=== PATIENT | female | born 1980 | race African-American/Black ===

== ENCOUNTER 2016-08-26 10:51 | Emergency (ER) | payer MEDICAID ==
[~2016-08-26] VITALS: Ht 170.2 cm; Wt 80.0 kg
[~2016-08-26 10:51] MED LIST: ZITH250T PO
[2016-08-26 10:53] VITALS: BP 143/78; PULSE 72; RESP 12; TEMP 98.1; O2SAT 99
--- NOTE | 2016-08-26 11:17 | PD ---
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 Has had some lower abdominal pain, nonradiating, mild. Patient denies any fevers or chills. She says she's had one sexual partner in the past 6 months. PFS Past Medical History Diminished Hearing: No Immunizations Current: Yes : 4 Para: 2 Miscarriage: 0 : 2 Social History Alcohol Use: Yes (occassional) Tobacco Use: Yes Substance Use: No Allergies-Medications (Allergen,Severity, Reaction): Coded Allergies: Penicillin (Verified Allergy, Severe, RASH, 08/26/16) Reported Meds & Prescriptions Reported Meds & Active Scripts Active No Active Prescriptions or Reported Medications Review of Systems Except as stated in HPI: all other systems reviewed are Neg Physical Exam Narrative GENERAL: Well-nourished, well-developed patient. SKIN: Warm and dry. HEAD: Normocephalic. EYES: No scleral icterus. No injection or drainage. NECK: Supple, trachea midline. CARDIOVASCULAR: Regular rate and rhythm without murmurs. RESPIRATORY: Breath sounds equal bilaterally. No accessory muscle use. GASTROINTESTINAL: Abdomen soft, mildly tender to palpation in the suprapubic region with no rebound or guarding. SNUFF DRIER: White vaginal discharge with a fishy odor in the vault, no cervical motion tenderness or adnexal tenderness. MUSCULOSKELETAL: No cyanosis, or edema. Data Data Last Documented VS Vital Signs Date Time Temp Pulse Resp B/P Pulse Ox O2 Delivery O2 Flow Rate FiO2 08/26/16 10:53 98.1 72 12 143/78 99 Room Air Orders Wet Prep Profile (08/26/16 11:15) Gc And Chlamydia Pcr (08/26/16 11:15) Urinalysis - C+S If Indicated (08/26/16 11:17) Urine Culture (08/26/16 11:15) Labs Laboratory Tests Test 08/26/16 11:15 Urine Color YELLOW Urine Turbidity HAZY Urine pH 6.5 Urine Specific [place] 1.019 Urine Protein TRACE mg/dL Urine Glucose (UA) NEG mg/dL Urine Ketones NEG mg/dL Urine Occult Blood NEG Urine Nitrite NEG Urine Bilirubin NEG Urine Urobilinogen LESS THAN 2.0 MG/DL Urine Leukocyte Esterase MOD Urine RBC 3 /hpf Urine WBC 8 /hpf Urine Squamous Epithelial 44 /hpf Cells Urine Bacteria MOD /hpf Urine Hyaline Casts 2 /lpf Urine Mucus FEW /lpf Microscopic Urinalysis Comment CULTURE INDICATED Clue Cells (Wet Prep) NONE SEEN Vaginal Trichomonas (Wet Prep) NONE SEEN Vaginal Yeast (Wet Prep) NONE SEEN MDM Medical Decision Making Medical Screen Exam Complete: Yes Emergency Medical Condition: Yes Interpretation(s) Afebrile, no tachycardia, mild hypertension Wet prep doesn't rate any clue cells, Trichomonas or yeast Urinalysis: Contaminated but with white blood cells and bacteria Differential Diagnosis Urinary tract infection, bacterial vaginosis, yeast infection, STD Narrative Course This is a 36-year-old female who presents the emergency department with foul- smelling vaginal discharge as well as some dysuria and frequency. On pelvic exam she has evidence of bacterial vaginosis. Wet prep was negative but clinically her exam is consistent. Urinalysis demonstrates white blood cells but is contaminated. Given her symptoms are consistent with the UTI, I think it 's reasonable to discharge her on antibiotics. Patient will be discharged on Macrobid and Flagyl. Diagnosis Primary Impression: Bacterial vaginosis Additional Impression: Yeast infection Patient Instructions: General Instructions Additional Instructions: If you develop fever, persistent vomiting, back pain, or inability to eat return to the emergency department as your urine infection may have progressed to a kidney infection. Complete your antibiotics as prescribed. Stay well hydrated with Gatorade or water. Followup with your primary care physician in 2-3 days if your symptoms have not resolved. Med/Other Pt SpecificInfo: Prescription(s) given Scripts Metronidazole (Flagyl)500 Mg [id number] Mg PO BID 7 Days Prov:Leilani Beth MD 08/26/16 Nitrofurantoin Monohydrate Macrocrystals (Macrobid)100 Mg [id number] Mg PO BID 7 Days Prov:Leilani Beth MD 08/26/16 Disposition: 01 DISCHARGE HOME Condition: Stable Leilani Beth MD Aug 26, 2016 11:17
[2016-08-26 11:46] LABS: BACTERIA, URINE MOD /hpf; BLOOD, URINE NEG (NEG); GLUCOSE,URINE NEG (NEG); HYALINE CAST, URINE 2 /lpf (RARE); KETONE, URINE NEG (NEG); MUCUS URINE FEW /lpf (OCC); NITRITE,URINE NEG (NEG); PH, URINE 6.5 (5.0-8.5); SQUAMOUS EPITHELIAL CELL URINE 44 /hpf (0-5); URINE COLOR YELLOW (YELLW/STRAW)
[2016-08-26 11:50] LABS: COMMENT (UR) CULTURE INDICATED; CULTURE IF INDICATED CULTURE INDICATED
[2016-08-26] MEDS ORDERED: METR-1 PO (11:58)
[2016-08-26] MEDS ORDERED: MACR100C2 PO (11:58)
[2016-08-26 12:27] VITALS: BP 137/74
[2016-08-26 15:52] LABS: CHLAMYDIA PCR NOT DETECTED (NOT DETECT); NEISSERIA PCR NOT DETECTED (NOT DETECT)
== END 2016-08-26 12:28 | disposition home or self-care (01) ==
LOC: NEPC 10:51
DX: N76.0 Acute vaginitis (principal); B37.9 Candidiasis, unspecified; Z72.0 Tobacco use
CPT/HCPCS: 81001; 87086; 87210; 87491; 87591; 99283

== ENCOUNTER 2016-10-28 08:32 | Emergency (ER) | payer MEDICAID ==
[~2016-10-28] VITALS: Ht 170.2 cm; Wt 80.0 kg
[~2016-10-28 08:32] MED LIST changes: +MACR100C2 PO; +METR-1 PO; -ZITH250T PO
[2016-10-28 08:33] VITALS: BP 129/92; PULSE 71; RESP 16; TEMP 97.8; O2SAT 100
--- NOTE | 2016-10-28 09:10 | PD ---
HPI Chief Complaint: Complaint Time Seen by Provider: 08:49 Travel History International Travel<30 days: No Contact w/Intl Traveler<30days: No Traveled to known affect area: No History of Present Illness HPI This is a 36-year-old female presents today with complaints of dysuria urgency and frequency 2 days. Patient denies any fevers, chills. Patient denies any back pain. Please note the initial son reports stated back pain however she denies at this time. The patient does report that her previous UTIs were more severe with associated nausea vomiting diarrhea. Patient denies any vaginal discharge. She denies any possibility of at this time. PFSH Past Medical History Medical History: Denies Significant Hx Diminished Hearing: No Immunizations Current: Yes Tetanus Vaccination: < 5 Years Influenza Vaccination: No ?: Not LMP: OCTOBER 2016 : 4 Para: 2 Miscarriage: 0 : 2 Past Surgical History Surgical History: No Previous Surgery Social History Alcohol Use: Yes (occassional) Tobacco Use: No Substance Use: No Allergies-Medications (Allergen,Severity, Reaction): Coded Allergies: Penicillin (Verified Allergy, Severe, RASH, 08/26/16) Reported Meds & Prescriptions Reported Meds & Active Scripts Active No Active Prescriptions or Reported Medications Review of Systems Except as stated in HPI: all other systems reviewed are Neg General / Constitutional: No: Fever, Chills Respiratory: No: Cough, Shortness of Breath Gastrointestinal: No: Nausea, Vomiting, Diarrhea, Abdominal Pain Genitourinary: Positive: Urgency, Frequency, Dysuria, No: Hematuria Musculoskeletal: No: Myalgias, Pain (no back pain) Physical Exam Narrative GENERAL: Well-nourished, well-developed patient. SKIN: Warm and dry. HEAD: Normocephalic/atraumatic. EYES: No scleral icterus. No injection or drainage. NECK: Supple, trachea midline. GASTROINTESTINAL: Abdomen soft, non-tender, nondistended. BACK: Nontender without obvious deformity. No CVA tenderness. Data Data Last Documented VS Vital Signs Date Time Temp Pulse Resp B/P Pulse Ox O2 Delivery O2 Flow Rate FiO2 10/28/16 08:54 80 17 10/28/16 08:33 97.8 129/92 100 Room Air Orders Urinalysis - C+S If Indicated (10/28/16 08:49) Ed Urine Pregnancytest Poc (10/28/16 08:49) Labs Laboratory Tests Test 10/28/16 08:57 Urine Color YELLOW Urine Turbidity HAZY Urine pH 5.5 Urine Specific [place] 1.018 Urine Protein NEG mg/dL Urine Glucose (UA) NEG mg/dL Urine Ketones NEG mg/dL Urine Occult Blood NEG Urine Nitrite NEG Urine Bilirubin NEG Urine Urobilinogen LESS THAN 2.0 MG/DL Urine Leukocyte Esterase NEG Urine RBC LESS THAN 1 /hpf Urine WBC 2 /hpf Urine Squamous Epithelial 19 /hpf Cells Urine Bacteria RARE /hpf Urine Mucus FEW /lpf Microscopic Urinalysis Comment CULT NOT INDICATED MDM Medical Decision Making Medical Screen Exam Complete: Yes Emergency Medical Condition: Yes Differential Diagnosis Cystitis versus pyelonephritis versus a pelvic infection Narrative Course 36-year-old female presents with dysuria, urgency, frequency. The patient has a few bacteria and 2 WBCs in her urine. The patient is symptomatically there is no vaginal discharge vaginal bleeding. There is no abdominal pain on examination. I discussed that this is likely an early UTI. I also said that she could have her spasms. She'll be treated with Cipro and Pyridium. Since her return if she does any worsening symptoms. I did discuss that she should urinate frequently and drink plenty of water. She's also been told to wipe front to back avoid bubble baths and urinate after any sexual activity. Diagnosis Primary Impression: Cystitis Med/Other Pt SpecificInfo: Prescription(s) given Scripts Phenazopyridine (Pyridium)200 Mg [id number] Mg PO Q8H PRN (DYSURIA) #6 TAB Ref 0 Prov:Clifton Arellano MD 10/28/16 Ciprofloxacin (Cipro)500 Mg [id number] Mg PO BID #14 TAB Ref 0 Prov:Clifton Arellano MD 10/28/16 Disposition: DISCHARGE HOME Condition: Stable Clifton Arellano MD Oct 28, 2016 09:10
[2016-10-28 09:29] LABS: BACTERIA, URINE RARE /hpf; BLOOD, URINE NEG (NEG); COMMENT (UR) CULT NOT INDICATED; CULTURE IF INDICATED CULT NOT INDICATED; GLUCOSE,URINE NEG (NEG); KETONE, URINE NEG (NEG); MUCUS URINE FEW /lpf (OCC); NITRITE,URINE NEG (NEG); PH, URINE 5.5 (5.0-8.5); SQUAMOUS EPITHELIAL CELL URINE 19 /hpf (0-5); URINE COLOR YELLOW (YELLW/STRAW)
[2016-10-28] MEDS ORDERED: PYRI200T4 PO (10:01)
[2016-10-28] MEDS ORDERED: CIPR-9 PO (10:01)
== END 2016-10-28 10:43 | disposition home or self-care (01) ==
LOC: NEPE 08:32 → NEDA 09:13 → UNDOADMIN 09:13 → NEPE 10:43
DX: N30.90 Cystitis, unspecified without hematuria (principal)
CPT/HCPCS: 81001; 84703; 99284

== ENCOUNTER 2016-11-30 13:30 | Emergency (ER) | payer MEDICAID ==
[~2016-11-30] VITALS: Ht 170.2 cm; Wt 77.0 kg
[~2016-11-30 13:30] MED LIST changes: +CIPR-9 PO; -MACR100C2 PO; -METR-1 PO; +PYRI200T4 PO
[2016-11-30 13:32] VITALS: BP 132/104; PULSE 72; RESP 24; TEMP 97.5; O2SAT 98
--- NOTE | 2016-11-30 14:22 | PD ---
HPI Chief Complaint: Laceration/Skin Injury Time Seen by Provider: 14:22 Travel History International Travel<30 days: No Contact w/Intl Traveler<30days: No Traveled to known affect area: No History of Present Illness HPI 36-year-old female presents to the emergency Department with complaint of a laceration to her left index finger from a steak knife. She does not she is up- to-date on her tetanus vaccination. Denies paresthesias, loss of sensation, decreased range of motion to the affected finger. Denies fever, chills, nausea , vomiting. Has not taken any medications to alleviate her symptoms. Has applied pressure and a bandage to control bleeding. Allergies to penicillin. No other medical complaint. No other modifying factors or associated signs and symptoms. PFSH Past Medical History Diminished Hearing: No Immunizations Current: Yes ?: Not LMP: 11/26/16 : 4 Para: 2 Miscarriage: 0 : 2 Social History Alcohol Use: Yes (occassional) Tobacco Use: No Substance Use: No Allergies-Medications (Allergen,Severity, Reaction): Coded Allergies: Penicillin (Verified Allergy, Severe, RASH, 11/30/16) Reported Meds & Prescriptions Reported Meds & Active Scripts Active Clindamycin (Clindamycin HCl) 300 Mg Cap 300 Mg PO Q8H 7 Days Ibuprofen 800 Mg Tab 800 Mg PO Q6HR PRN Review of Systems Except as stated in HPI: all other systems reviewed are Neg Physical Exam Narrative GENERAL: Well-nourished, well-developed female patient, in no acute distress SKIN: Warm and dry. Approximately 1-1/2 centimeter laceration to the medial aspect of the left index finger between the MCP and PIP joint. The fingers with full range of motion and good opposition; sensory intact and less than 3 second cap refill; fingers without erythema, edema. Minimal amount of bright red drainage from the laceration site. Left upper extremity is supple and non- tense with 2+ radial pulses and sensory intact and without erythema or edema. HEAD: Atraumatic. Normocephalic. EYES: Pupils equal and round. No scleral icterus. No injection or drainage. ENT: Mucosa pink and moist. Airway patent. NECK: Trachea midline. CARDIOVASCULAR: Regular rate. RESPIRATORY: No accessory muscle use. GASTROINTESTINAL: Flat. MUSCULOSKELETAL: No obvious deformities. No clubbing. No cyanosis. No edema. NEUROLOGICAL: Awake and alert. Oriented 3. No obvious cranial nerve deficits. Motor grossly within normal limits. Normal speech. PSYCHIATRIC: Appropriate mood and affect; insight and judgment normal. Data Data Last Documented VS Vital Signs Date Time Temp Pulse Resp B/P Pulse Ox O2 Delivery O2 Flow Rate FiO2 11/30/16 13:32 97.5 72 24 132/104 98 Room Air Orders Bupivacaine Pf 0.5% Inj (Marcaine Pf 0.5 (11/30/16 14:30) Lidocaine 1% Inj (50 Ml) (Xylocaine 1% I (11/30/16 14:30) [facility] Medical Decision Making Medical Screen Exam Complete: Yes Emergency Medical Condition: Yes Medical Record Reviewed: Yes Differential Diagnosis Laceration, contusion, abrasion Narrative Course 36-year-old female with laceration to her left index finger. Fingers with full range of motion and good opposition. Sensory intact. Patient declines tetanus update. See my procedure note for laceration repair. Clindamycin and ibuprofen prescribed for home. Instructed patient to return to the emergency department or follow-up with primary care in 7-10 days for suture removal. Patient verbalizes understanding and agreement with treatment plan. Patient is medically cleared and stable for discharge. Discussed reasons to return to the emergency department. Instructed patient to follow up with primary care provider. Patient agrees with treatment plan. The patients vital signs are stable and the patient is stable for outpatient follow-up and treatment. Patient discharged home, stable and in no acute distress. Procedures Procedure Narrative LACERATION LOCATION: Medial aspect of left index finger between the MCP and PIP joint LENGTH: One and half centimeters NUMBER OF STITCHES/YESSI: 3 stitches REPAIR: The area of the laceration was prepped with Betadine and sterilely draped. The finger was digitally blocked with 1% lidocaine and 0.5% bupivacaine. The wound was copiously irrigated and explored without evidence of foreign body , tendon injury or neurovascular injury. The wound was closed using 4-0 Prolene. This was a single layer repair. A sterile dressing was applied. The patient was advised to keep the dressing clean and dry. Patient tolerated the procedure well. Diagnosis Primary Impression: Laceration of left index finger Referrals: Primary Care Physician Patient Instructions: Care For Your Stitches (ED), Finger Laceration (ED), General Instructions Additional Instructions: Keep area clean and dry Limit left index finger activity to decrease risk of sutures coming undone Ibuprofen or Tylenol as directed and as needed for pain and inflammation Ice pack to area as needed to decrease pain Return to the emergency department or follow-up with primary care provider in 7- 10 days for suture removal Follow up with primary care provider Return to the emergency department immediately with worsening of symptoms, particularly if reddened streaks up or down the affected extremity from the suture site, fever, numbness/tingling in the affected extremity, loss of sensation in the affected extremity, severe swelling of the affected Med/Other Pt SpecificInfo: Prescription(s) given Scripts Clindamycin 300 Mg [id number] Mg PO Q8H 7 Days Ref 0 Prov:Nicolette Moses 11/30/16 Ibuprofen 800 Mg Put028 Mg PO Q6HR PRN (PAIN) #30 TAB Ref 0 Prov:Nicolette Moses 11/30/16 Disposition: 01 DISCHARGE HOME Condition: Stable Nicolette Moses Nov 30, 2016 14:22
[2016-11-30] MEDS ORDERED: IBUP800T23 PO (14:23)
[2016-11-30] MEDS ORDERED: CLIN1CAP6 PO (14:25)
[2016-11-30] MEDS ORDERED: LIDOCAINE HCL 1% 50 ML VIAL INFIL ONE (14:30)
[2016-11-30] MEDS ORDERED: BUPIVACAINE HCL PF 0.5% 10 ML VIAL INFIL ONE (14:30)
== END 2016-11-30 15:53 | disposition home or self-care (01) ==
LOC: NEPK 13:30
DX: S61.211A Laceration without foreign body of left index finger without damage to nail, initial encounter (principal); W26.0XXA Contact with knife, initial encounter; Z88.0 Allergy status to penicillin
CPT/HCPCS: 12001

== ENCOUNTER 2016-12-17 21:40 | Emergency (ER) | payer MEDICAID ==
[~2016-12-17 21:40] MED LIST changes: -CIPR-9 PO; +CLIN1CAP6 PO; +IBUP800T23 PO; -PYRI200T4 PO
[2016-12-17 21:43] VITALS: BP 139/93; PULSE 85; RESP 14; TEMP 98.9; O2SAT 97
[2016-12-17 21:58] VITALS: BP 142/91; PULSE 79; RESP 16; O2SAT 98
[2016-12-17] MEDS ORDERED: IBUPROFEN 800 MG TAB PO ONE (22:15)
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
== END 2016-12-17 23:21 | disposition home or self-care (01) ==
LOC: NEPD 21:40
DX: R68.84 Jaw pain (principal); W50.0XXA Accidental hit or strike by another person, initial encounter; Y93.9 Activity, unspecified; Y92.9 Unspecified place or not applicable; Y99.8 Other external cause status
CPT/HCPCS: 70486; 84703

== ENCOUNTER 2017-03-08 04:37 | Emergency (ER) | payer MEDICAID ==
[~2017-03-08] VITALS: Ht 170.2 cm; Wt 77.0 kg
[2017-03-08 04:39] VITALS: BP 126/83; PULSE 71; RESP 16; TEMP 98.5; O2SAT 96
[2017-03-08] MEDS ORDERED: DOXY1CAP74 PO (04:46)
--- NOTE | 2017-03-08 05:06 | PD ---
HPI Chief Complaint: [place] Bone Roller Problem/Complaint Time Seen by Provider: 05:05 Travel History International Travel<30 days: No Contact w/Intl Traveler<30days: No Traveled to known affect area: No History of Present Illness HPI 36-year-old female with presents to the ER with several weeks' history of vaginal discharge, pelvic pains, states that she had her menses and the symptoms went away but then came back after the menses. She has also been having burning on urination. She denies any nausea, vomiting, fevers, or any other symptoms. She has unprotected sex but denies any new partners. Modifying Factors: None Associated Signs & Symptoms: Vaginal discharge, dysuria, pelvic pain Risk Factors: None PFSH Past Medical History Medical History: Denies Significant Hx Diminished Hearing: No Immunizations Current: Yes ?: Not LMP: 03/07/17 : 4 Para: 2 Miscarriage: 0 : 2 Past Surgical History Surgical History: No Previous Surgery Social History Alcohol Use: Yes (occassional) Tobacco Use: No Substance Use: No Allergies-Medications (Allergen,Severity, Reaction): Coded Allergies: Penicillin (Verified Allergy, Severe, RASH, 12/17/16) Reported Meds & Prescriptions Reported Meds & Active Scripts Active Reported Doxycycline 40 Mg Cap 40 Mg PO DAILY Review of Systems Except as stated in HPI: all other systems reviewed are Neg Physical Exam Narrative GENERAL: Well-developed young -[place] female patient currently in mild distress. Awake and oriented 3. SKIN: Focused skin assessment warm/dry. HEAD: Atraumatic. Normocephalic. EYES: Pupils equal and round. No scleral icterus. No injection or drainage. ENT: No nasal bleeding or discharge. Mucous membranes pink and moist. NECK: Trachea midline. No JVD. CARDIOVASCULAR: Regular rate and rhythm. No murmur appreciated. RESPIRATORY: No accessory muscle use. Clear to auscultation. Breath sounds equal bilaterally. GASTROINTESTINAL: Abdomen soft, mild pelvic tenderness without guarding or rebound, nondistended. Hepatic and splenic margins not palpable. GENITOURINARY: Normal external genitalia without lesions or erythema. Vaginal vault without blood but notable for whitish greenish drainage. Cervical os was closed without drainage. No cervical motion tenderness. Uterus nontender and nonenlarged. Bilateral adnexa nontender without masses. MUSCULOSKELETAL: No obvious deformities. No clubbing. No cyanosis. No edema. NEUROLOGICAL: Awake and alert. No obvious cranial nerve deficits. Motor grossly within normal limits. Normal speech. PSYCHIATRIC: Appropriate mood and affect; insight and judgment normal. Data Data Last Documented VS Vital Signs Date Time Temp Pulse Resp B/P Pulse Ox O2 Delivery O2 Flow Rate FiO2 03/08/17 04:39 98.5 71 16 126/83 96 Room Air Orders Gc And Chlamydia Pcr (03/08/17 04:52) Wet Prep Profile (03/08/17 04:52) Urinalysis - C+S If Indicated (03/08/17 04:52) Ed Urine Pregnancytest Poc (03/08/17 04:52) Ceftriaxone Inj (Rocephin Inj) (03/08/17 05:15) Lidocaine 1% Inj (50 Ml) (Xylocaine 1% I (03/08/17 05:15) Metronidazole (Flagyl) (03/08/17 05:15) Azithromycin Powd Pack (Zithromax Powd P (03/08/17 05:15) Labs Laboratory Tests Test 03/08/17 03/08/17 04:55 05:12 Urine Color LIGHT-YELLOW Urine Turbidity CLEAR Urine pH 7.0 Urine Specific [place] 1.018 Urine Protein NEG mg/dL Urine Glucose (UA) NEG mg/dL Urine Ketones NEG mg/dL Urine Occult Blood NEG Urine Nitrite NEG Urine Bilirubin NEG Urine Urobilinogen LESS THAN 2.0 MG/DL Urine Leukocyte Esterase NEG Urine WBC LESS THAN 1 /hpf Urine Squamous Epithelial 2 /hpf Cells Microscopic Urinalysis Comment CULT NOT INDICATED Clue Cells (Wet Prep) NONE SEEN Vaginal Trichomonas (Wet Prep) NONE SEEN Vaginal Yeast (Wet Prep) NONE SEEN MDM Medical Decision Making Medical Screen Exam Complete: Yes Emergency Medical Condition: Yes Medical Record Reviewed: Yes Differential Diagnosis Vaginal discharge, pelvic pains, dysuriaUTI versus cervicitis versus dysmenorrhea versus vaginitis Narrative Course She is not . Pelvic exam is concerning for discharge and questionable vaginitis. Empiric antibiotics were given as precaution. Cultures have been sent. UA did not show any signs of UTI. At this point, my plan would be to release the patient with follow-up to primary care physician. Return for any worsening in symptoms as needed. The plan has been discussed with her and she states understanding. Safe sex until return of cultures. Diagnosis Primary Impression: Vaginal discharge Disposition: DISCHARGE HOME Condition: Stable Aristides Powers MD Mar 08, 2017 05:06
[2017-03-08] MEDS ORDERED: AZITHROMYCIN PWD FOR SUSP 1 GM PACKET PO ONE (05:15)
[2017-03-08] MEDS ORDERED: LIDOCAINE HCL 1% 50 ML VIAL IM ONE (05:15)
[2017-03-08] MEDS ORDERED: metroNIDAZOLE 500 MG TAB PO ONE (05:15)
[2017-03-08] MEDS ORDERED: cefTRIAXone 250 MG VIAL IM ONE (05:15)
[2017-03-08 05:27] LABS: BLOOD, URINE NEG (NEG); COMMENT (UR) CULT NOT INDICATED; CULTURE IF INDICATED CULT NOT INDICATED; GLUCOSE,URINE NEG (NEG); KETONE, URINE NEG (NEG); NITRITE,URINE NEG (NEG); SQUAMOUS EPITHELIAL CELL URINE 2 /hpf (0-5); URINE COLOR LIGHT-YELLOW (YELLW/STRAW)
[2017-03-08 10:30] LABS: CHLAMYDIA PCR NOT DETECTED (NOT DETECT); NEISSERIA PCR NOT DETECTED (NOT DETECT)
== END 2017-03-08 06:22 | disposition home or self-care (01) ==
LOC: NEPE 04:37
DX: N89.8 Other specified noninflammatory disorders of vagina (principal)
CPT/HCPCS: 81001; 84703; 87210; 87491; 87591; 96372; 99284; J0696

== ENCOUNTER 2017-04-14 21:21 | Emergency (ER) | payer MEDICAID ==
[~2017-04-14] VITALS: Ht 170.2 cm; Wt 75.0 kg
[~2017-04-14 21:21] MED LIST changes: -CLIN1CAP6 PO; +DOXY1CAP74 PO; -IBUP800T23 PO
[2017-04-14 21:24] VITALS: BP 128/81; PULSE 88; RESP 16; TEMP 97.9; O2SAT 99
== END 2017-04-14 23:10 | disposition left against medical advice (07) ==
LOC: NED 21:21
DX: Z53.21 Procedure and treatment not carried out due to patient leaving prior to being seen by health care provider (principal)
CPT/HCPCS: 99281

== ENCOUNTER 2018-02-02 16:25 | Emergency (ER) | payer MEDICAID ==
[~2018-02-02] VITALS: Ht 170.2 cm; Wt 86.0 kg
[2018-02-02 16:33] VITALS: BP 125/58; PULSE 82; RESP 18; TEMP 98.9; O2SAT 97
[2018-02-02 17:16] LABS: BACTERIA, URINE RARE /hpf; BILIRUBIN, URINE NEG (NEG); BLOOD, URINE NEG (NEG); GLUCOSE,URINE NEG (NEG); KETONE, URINE NEG (NEG); MUCUS URINE FEW /lpf (OCC); NITRITE,URINE POS (NEG); SQUAMOUS EPITHELIAL CELL URINE 5 /hpf (0-5); URINE COLOR Amber (YELLW/STRAW); URINE LEUKOCYTE ESTERASE NEG (NEG)
== END 2018-02-02 20:29 | disposition left against medical advice (07) ==
LOC: NED 16:25
DX: R30.0 Dysuria (principal); R35.0 Frequency of micturition; Z53.21 Procedure and treatment not carried out due to patient leaving prior to being seen by health care provider
CPT/HCPCS: 81001; 84703; 87086; 99281